=== PATIENT | male | born 1990 | race Caucasian/White ===

== ENCOUNTER 2022-10-26 00:38 | Emergency (ER) | payer SELFPAY ==
[~2022-10-26] VITALS: Ht 182.9 cm; Wt 104.8 kg
[2022-10-26 00:42] VITALS: BP 143/91
--- NOTE | 2022-10-26 00:50 | NUR ---
Patient taken to bed 12.
--- NOTE | 2022-10-26 00:52 | NUR ---
Dr. Cardoza examining patient.
[2022-10-26] MEDS ORDERED: LIDOCAINE MPF 1% 5 ML ONE (00:54)
[2022-10-26] MEDS ORDERED: LIDOCAINE 1% 500 MG/ 50 ML VIAL INJ ONE (00:55)
--- NOTE | 2022-10-26 00:58 | NUR ---
Patient received on bed lying comfortably and awake. Alert and oriented x4. No acute distress. No complaints of pain or discomfort. Respirations even and unlabored. 1 cm skin laceration present to the left upper quadrant. Bleeding is controlled.
[2022-10-26] MEDS ORDERED: BACITRACIN OINT 500 UNITS/GM PKT TP ONE (01:04)
--- NOTE | 2022-10-26 01:09 | NUR ---
3 stitches done by the ER MD, Dr. Cardoza, for the skin laceration. Bleeding is controlled. Bacitracin administered topically as ordered and covered with non-adherent dressing.
[2022-10-26 01:35] VITALS: BP 124/64
--- NOTE | 2022-10-26 01:35 | NUR ---
Patient discharged with v/s stable. Written and verbal after care instructions given and explained. Patient verbalized understanding. Ambulatory with steady gait. All questions addressed prior to discharge. Advised to follow up with PMD.
== END 2022-10-26 01:35 | disposition home or self-care (01) ==
LOC: MED 00:38
DX: S21.112A Laceration without foreign body of left front wall of thorax without penetration into thoracic cavity, initial encounter (principal); Z98.890 Other specified postprocedural states; W25.XXXA Contact with sharp glass, initial encounter; Y93.89 Activity, other specified; Y92.89 Other specified places as the place of occurrence of the external cause; Y99.8 Other external cause status
CPT/HCPCS: 12001; 99282; J2001

== ENCOUNTER 2024-05-14 11:43 | Emergency (ER) | payer SELFPAY ==
[~2024-05-14] VITALS: Ht 182.9 cm; Wt 23.1 kg
[2024-05-14 12:16] VITALS: BP 127/85; PULSE 85; RESP 16; TEMP 98; O2SAT 99
[2024-05-14 13:10] LABS: BILIRUBIN,URINE NEGATIVE (NEGATIVE); BLOOD, URINE 3+ (NEGATIVE); COLOR,URINE YELLOW (YELLOW); LEUKOCYTE ESTERASE ,URINE NEGATIVE (NEGATIVE); NITRITE, URINE NEGATIVE (NEGATIVE); PROTEIN,URINE NEGATIVE (NEGATIVE); UGLUCOSE NEGATIVE (NEGATIVE); UROBILINOGEN,URINE 0.2 EU/dL (0.2 - 1)
[2024-05-14] MEDS ORDERED: cefTRIAXone 500 MG VIAL ONE (13:25)
[2024-05-14] MEDS ORDERED: LIDOCAINE MPF 1% 5 ML ONE (13:25)
[2024-05-14] MEDS: cefTRIAXone 500 MG in LIDOCAINE MPF 1% 1 ML IM ONE (13:31)
[2024-05-14 13:37] LABS: APPEARANCE,URINE HAZY (CLEAR)
[2024-05-14 13:38] LABS: BACTERIA,URINE 2+ /HPF (None Seen); MUCUS,URINE 2+ /LPF (None Seen); RBC,URINE 50-80 /HPF (0-5); SQUAMOUS EPITHELIAL CELL,UR 4-10 (MOD) /LPF (0-3 (FEW))
[2024-05-14] MEDS ORDERED: CEFP200T20 PO (13:45)
[2024-05-14 13:53] VITALS: BP 122/82; PULSE 88; RESP 16; TEMP 98; O2SAT 99
[2024-05-14 14:07] LABS: HIV RAPID SCREEN NON-REACTIVE (NON REACTIV)
[2024-05-17 10:14] LABS: RAPID PLASMA REAGIN NON-REACTIVE (Non Reactiv)
== END 2024-05-14 13:53 | disposition home or self-care (01) ==
LOC: MED 11:43
DX: N30.00 Acute cystitis without hematuria (principal); Z11.3 Encounter for screening for infections with a predominantly sexual mode of transmission; Z79.899 Other long term (current) drug therapy
CPT/HCPCS: 36415; 81001; 86592; 86703; 87086; 87491; 87529; 96372; 99283; J0696; J2003